=== PATIENT | female | born 1995 | race Caucasian/White ===

== ENCOUNTER 2019-01-02 18:50 | Emergency (ER) | payer MEDICAID, OTHER ==
[~2019-01-02] VITALS: Ht 157.5 cm; Wt 63.8 kg
[~2019-01-02 18:50] MED LIST: ONDA4TAB35 PO; THYROID MED PO
[2019-01-02 18:52] VITALS: Ht 157.5 cm; Wt 63.8 kg
[2019-01-02] MEDS ORDERED: CEFTRIAXONE 1 GM INJ IM ONE (19:30)
[2019-01-02] MEDS ORDERED: LIDOCAINE 1% (MPF) 5 ML VIAL INJ ONE (19:30)
[2019-01-02] MEDS ORDERED: KETOROLAC 60 MG INJ IM STA (19:38)
[2019-01-02] MEDS ORDERED: CEPH-443 PO (19:44)
[2019-01-02] MEDS ORDERED: IBUP-1542 PO (19:47)
--- NOTE | 2019-01-02 19:50 | ERD ---
ER Documentation Chief Complaint Chief Complaint UTI WITH FEVER; ON ATBs (Cipro), has not taken tylenol or ibuprofen HPI 22-year-old female presents with complaint of UTI along with fever. States that she was diagnosed yesterday at an urgent care with UTI and put on ciprofloxacin for 3 days. Not taking any medication for fever. States she has been having some pain in the pelvic area but denies abdominal pain, flank pain, vomiting, back pain, vaginal discharge. ROS All systems reviewed and are negative except as per history of present illness. Medications Home Meds Active Scripts Hydrocodone/Acetaminophen ([place] 5-325 Tablet) 1 Each Tablet, 1 TAB PO Q6H PRN for PAIN, #10 TAB Prov:TYE PERDUE 01/02/19 Ibuprofen* (Motrin*) 600 Mg Tab, 600 MG PO Q6H PRN for PAIN AND OR ELEVATED TEMP, #30 TAB Prov:TYE PERDUE 01/02/19 Cephalexin* (Keflex*) 500 Mg Capsule, 500 MG PO BID for UTI for 7 Days, CAP Prov:TYE PERDUE 01/02/19 Ondansetron Hcl* (Zofran* ODT) 4 mg -ODT Tab.disper, 4 MG PO Q6 PRN for NAUSEA AND/OR VOMITING, #10 TAB Prov:NOEL GARCIA NP 03/30/16 Reported Medications [Thyroid Med] No Conflict Check, PO DAILY 01/24/14 Allergies Allergies: Coded Allergies: No Known Allergies (Verified Allergy, Unknown, 01/02/19) PMhx/Soc History of Surgery: Yes (EAR SX , LT LEG SURGERY ) Anesthesia Reaction: No Hx Neurological Disorder: No Hx Respiratory Disorders: No Hx Cardiac Disorders: No Hx Psychiatric Problems: No Hx Miscellaneous Medical Probl: No Hx Alcohol Use: No Hx Substance Use: No Hx Tobacco Use: No Smoking Status: Never smoker FmHx Family History: No diabetes, No coronary disease, No other Physical Exam Vitals Vital Signs Date Temp Pulse Resp B/P (MAP) Pulse Ox O2 O2 Flow FiO2 Time Delivery Rate 01/02/19 99.5 108 16 115/68 99 Room Air 20:38 (84) 01/02/19 102.3 116 19 142/71 97 18:52 (94) Physical Exam Const: No acute distress Head: Atraumatic Eyes: Normal Conjunctiva ENT: Normal External Ears, Nose and Mouth. Neck: Full range of motion. No meningismus. Resp: Clear to auscultation bilaterally Cardio: Regular rate and rhythm, no murmurs Abd: Moderate suprapubic tenderness to palpation, otherwise soft, non tender, non distended. Normal bowel sounds Skin: No petechiae or rashes Back: No midline or flank tenderness Ext: No cyanosis, or edema Neur: Awake and alert Psych: Normal Mood and Affect Results 24 hrs Laboratory Tests Test 01/02/19 19:40 01/02/19 19:47 Urine Color YELLOW Urine Clarity CLOUDY Urine pH 5.0 Urine Specific [place] 1.021 Urine Ketones NEGATIVE mg/dL Urine Nitrite NEGATIVE mg/dL Urine Bilirubin NEGATIVE mg/dL Urine Urobilinogen NEGATIVE mg/dL Urine Leukocyte Esterase 2+ Jamin/ul Urine Microscopic RBC 6 /HPF Urine Microscopic WBC 61 /HPF Urine Squamous Epithelial Cells FEW /HPF Urine Bacteria FEW /HPF Urine Mucus FEW /HPF Urine Hemoglobin 2+ mg/dL Urine Glucose NEGATIVE mg/dL Urine Total Protein 1+ mg/dl POC Beta HCG, Qualitative NEGATIVE Current Medications Medications Dose Sig/Yinka Start Time Status Last (Trade) Ordered Route PRN Stop Time Admin Dose Reason Admin Ceftriaxone 1 gm ONCE ONCE 01/02/19 DC 01/02/19 Sodium IM 19:30 01/02/19 19:40 (Rocephin) 19:31 Lidocaine 5 ml ONCE ONCE 01/02/19 DC 01/02/19 (Xylocaine INJ 19:30 01/02/19 19:40 1% (Mpf)) 19:31 Ketorolac 60 mg ONCE STAT 01/02/19 DC 01/02/19 Tromethamine IM 19:38 01/02/19 19:55 (Toradol) 19:40 Procedures/MDM Given the lack of vomiting and CVA tenderness I have low suspicion for pyelonephritis. Patient's presentation consistent with complicated UTI. Patient was given 1 g of ceftriaxone in the ER and discharged with Rx for Keflex. Patient's urine was sent for culture. Patient was nontoxic-appearing at time of discharge so I very low suspicion for sepsis. I also have low suspicion for appendicitis, tubo-ovarian abscess, ovarian torsion, PID, appendicitis, or any other emergent condition. Patient discharged with strict ER precautions. Patient advised to follow up with PMD. All questions answered at discharge. Departure Diagnosis: Primary Impression: UTI (urinary tract infection) Urinary tract infection type: site unspecified Hematuria presence: without hematuria Qualified Codes: N39.0 - Urinary tract infection, site not specified Condition: Stable Patient Instructions: Understanding Urinary Tract Infections (UTIs) Referrals: DIPAK GRANT (PCP) Additional Instructions: FOLLOW UP WITH YOUR PRIMARY CARE PHYSICIAN TOMORROW.Return to this facility if you are not improving as expected. TYE PERDUE Jan 02, 2019 19:50
[2019-01-02 20:38] VITALS: BP 115/68; PULSE 108; RESP 16
[2019-01-02] MEDS ORDERED: HYDR-4011 PO (20:42)
== END 2019-01-02 20:50 | disposition home or self-care (01) ==
LOC: FTE 18:50
DX: N39.0 Urinary tract infection, site not specified (principal); R10.2 Pelvic and perineal pain
CPT/HCPCS: 81001; 81025; 87086; 96372; 99284; J0696; J1885